=== PATIENT | male | born 1955 | race Caucasian/White ===

== ENCOUNTER 2016-09-13 11:02 | Outpatient (CLI) | payer OTHER | END 2016-09-13 11:03 | disposition home or self-care (01) | DX: E03.9 Hypothyroidism, unspecified (principal); Z79.899 Other long term (current) drug therapy ==

== ENCOUNTER 2017-06-27 08:00 | Outpatient (CLI) | payer OTHER ==
[2017-06-27 14:36] LABS: BASOPHILS % (AUTO) 0.3 %; EOSINOPHILS # (AUTO) 0.2 10^3/uL (0.0-0.7); EOSINOPHILS % (AUTO) 4.6 %; HGB - HEMOGLOBIN 15.6 g/dL (14.0-18.0); LYMPHOCYTES # (AUTO) 1.4 10^3/uL (1.5-3.5); LYMPHOCYTES % (AUTO) 29.5 %; MEAN CORPUSCULAR HEMOGLOBIN 30.9 pg (27.0-31.0); MEAN CORPUSCULAR HGB CONC 33.8 g/dL (32.0-36.0); MEAN CORPUSCULAR VOLUME 91.6 fL (80.0-94.0); MEAN PLATELET VOLUME 9.6 fL (7.4-11.4); MONOCYTES # (AUTO) 0.4 10^3/uL (0.0-1.0); MONOCYTES % (AUTO) 7.8 %; NEUTROPHILS # (AUTO) 2.7 10^3/uL (1.5-6.6); NEUTROPHILS % (AUTO) 57.8 %; PLT - PLATELET COUNT 155 10^3/uL (130-450); RED BLOOD COUNT 5.04 10^6/uL (4.70-6.10); RED CELL DISTRIBUTION WIDTH 13.6 % (12.0-15.0); WHITE BLOOD COUNT 4.6 x10^3/uL (4.8-10.8)
[2017-06-27 14:51] LABS: ALBUMIN 4.3 g/dL (3.2-5.5); ALBUMIN/GLOBULIN RATIO 1.7 (1.0-2.2); ALKALINE PHOSPHATASE 67 IU/L (42-121); ALT ALANINE AMINOTRANSFERASE 21 IU/L (10-60); AST ASPARTATE AMINOTRANSFERASE 23 IU/L (10-42); BILIRUBIN,TOTAL 0.6 mg/dL (0.2-1.0); BUN - BLOOD UREA NITROGEN 16 mg/dL (6-20); CALCIUM 8.9 mg/dL (8.5-10.3); CARBON DIOXIDE - CO2 26 mmol/L (21-32); CHLORIDE 103 mmol/L (101-111); CHOL/HDL RATIO 3.8 (<5.0); CHOLESTEROL 188 mg/dL; CREATININE 1.2 mg/dL (0.6-1.2); GFR - MDRD 62 (>89); GLUCOSE 89 mg/dL (70-100); HDL CHOLESTEROL 50 mg/dL; LDL CHOLESTEROL,CALCULATED 114 mg/dL; LDL/HDL RATIO 2.3 (<3.6); SODIUM 137 mmol/L (135-145); TOTAL PROTEIN 6.8 g/dL (6.7-8.2); VLDL CHOLESTEROL 24 mg/dL
[2017-06-27 14:55] LABS: BILIRUBIN,URINE NEGATIVE (NEGATIVE); GLUCOSE, URINE (UA) NEGATIVE (NEGATIVE); KETONES,URINE (UA) NEGATIVE (NEGATIVE); LEUKOCYTE ESTERASE, URINE NEGATIVE (NEGATIVE); NITRITE,URINE NEGATIVE (NEGATIVE); OCCULT BLOOD,URINE NEGATIVE (NEGATIVE); PROTEIN,URINE NEGATIVE (NEGATIVE); UROBILINOGEN,URINE 0.2 (NORMAL) E.U./dL (NORMAL)
[2017-06-27 14:56] LABS: CLARITY,URINE CLEAR (CLEAR)
[2017-06-28 12:56] LABS: HEPATITIS C ANTIBODY NON-REACTIVE (NON-REACTIVE)
== END 2017-06-27 08:01 | disposition home or self-care (01) ==
LOC: LAB.R 08:00
PROVIDERS: ATTEND Physician Assistant Medical
DX: N28.9 Disorder of kidney and ureter, unspecified (principal); Z79.899 Other long term (current) drug therapy; E03.9 Hypothyroidism, unspecified; Z11.59 Encounter for screening for other viral diseases; Z72.89 Other problems related to lifestyle; E78.2 Mixed hyperlipidemia
CPT/HCPCS: 80053; 80061; 81001; 81003; 83721; 84443; 85025; 86803; 87086

== ENCOUNTER 2019-01-05 | Outpatient (CLI) | payer OTHER | END 2019-01-05 08:11 | disposition home or self-care (01) ==